=== PATIENT | male | born 1955 | race African-American/Black ===

== ENCOUNTER 2024-10-07 17:21 | Emergency (ER) | payer OTHER ==
[~2024-10-07] VITALS: Ht 175.3 cm; Wt 101.0 kg
[2024-10-07] MEDS ORDERED: METFORMIN HCL500 M2 PO (18:28)
[2024-10-07] MEDS ORDERED: DEXAMETHASONE4 MG PO (18:29)
[2024-10-07] MEDS ORDERED: LIPITOR10 MG PO (18:30)
[2024-10-07 19:56] LABS: BASOPHILS 0.2 % (0.2-1.2); EOSINOPHILS 0.5 % (0.8-7.0); HEMATOCRIT 44.2 % (40.1-51.0); HEMOGLOBIN 14.4 g/dL (13.7-17.5); LYMPHOCYTES 25.2 % (21.8-53.1); MCH 27.1 PG (25.7-32.2); MCHC 32.6 g/dL (32.3-36.5); MCV 83.2 fL (79.0-92.2); MONOCYTES 9.3 % (5.3-12.2); NEUTROPHILS 64.6 % (34.0-67.9); PLATELET COUNT 299 K/uL (163-337); RBC 5.31 M/uL (4.63-6.08)
[2024-10-07] MEDS ORDERED: DAPTOmycin 500 MG/10 ML VIAL IV ONE (20:00)
[2024-10-07] MEDS ORDERED: MORPHINE SULFATE 4 MG/ML VIAL IV ONE (20:00)
[2024-10-07 20:06] LABS: ALBUMIN 3.5 g/dL (3.4-5.0); ALBUMIN/GLOBULIN RATIO 0.88 (1.1-2.4); ANION GAP 16.4 (7-21); BILIRUBIN, TOTAL 1.6 mg/dL (0.2-1.0); BUN/CREATININE RATIO 11.11 (6.0-28.6); CALCIUM 8.9 mg/dL (8.5-10.1); CREATININE, SERUM 1.08 mg/dL (0.70-1.30); POTASSIUM 3.4 mmol/L (3.5-5.1); PROTEIN, TOTAL 7.5 g/dL (6.4-8.2)
[2024-10-07 20:43] LABS: LACTIC ACID, BLOOD 1.8 mmol/L (0.4-2.0)
[2024-10-07] MEDS ORDERED: LEVOFLOXACIN500 MG PO (22:30)
[2024-10-07] MEDS ORDERED: HYDROCODON-ACE1 EA10 PO (22:31)
[2024-10-07 22:45] VITALS: BP 143/56
[2024-10-07] MEDS ORDERED: HYDROCODONE BIT/ACETAMINOPHEN 5/325 MG 1 TAB HOME.PACK PO ONE (22:45)
[2024-10-07] MEDS ORDERED: DOXYCYCLINE HYCLATE 100 MG HOME.PACK PO ONE (22:45)
== END 2024-10-07 22:55 | disposition home or self-care (01) ==
LOC: ED 17:21
PROVIDERS: Family Medicine
DX: L03.113 Cellulitis of right upper limb (principal); E11.9 Type 2 diabetes mellitus without complications; Z79.84 Long term (current) use of oral hypoglycemic drugs; Z79.899 Other long term (current) drug therapy
CPT/HCPCS: 36415; 80053; 83605; 85025; 96374; 96375; 99283-25; A9270; J0878; J2270